=== PATIENT | male | born 1960 | race Caucasian/White ===

== ENCOUNTER 2025-06-25 18:19 | Inpatient (IN) | payer MEDICARE ==
[~2025-06-25] VITALS: Ht 167.6 cm; Wt 67.4 kg
[2025-06-25 18:52] LABS: VENOUS BASE EXCESS -4.3 (-2.0-2.0); VENOUS HCO3 21.9 MMOL/L (23.0-27.0); VENOUS O2 SATURATION 88.5 % (60.0-80.0); VENOUS PARTIAL PRESSURE CO2 44.6 mmHg (38.0-50.0); VENOUS PARTIAL PRESSURE O2 61.4 mmHg (30.0-50.0); VENOUS PH 7.309 UNITS (7.330-7.430); VENOUS STANDARD HCO3 20.8 MMOL/L; VENOUS TOTAL CO2 23.3 MMOL/L (24.0-28.0)
[2025-06-25 18:56] LABS: BASO # 0.1 10^3/uL (0.0-0.2); BASO % 1.0 % (0.0-1.0); EOS # 0.0 10^3/uL (0.0-0.5); EOS % 0.3 % (0.0-3.0); LYMPH # 1.2 10^3/uL (1.5-5.0); LYMPH % 9.2 % (24.0-44.0); MONO # 0.5 10^3/uL (0.0-0.8); MONO % 3.7 % (2.0-8.0); NEUTROPHILS # 10.9 10^3/uL (1.5-8.5); NEUTROPHILS % 85.3 % (36.0-66.0); PLATELET COUNT, AUTOMATED 282 10^3/uL (150-450)
[2025-06-25 19:06] LABS: KETONE, URINE AUTO RFX TRACE mg/dL (NEGATIVE); LEUKOCYTE ESTERASE UR AUTO RFX NEGATIVE (NEGATIVE); MUCUS, URINE RFX SMALL (NEGATIVE); NITRITE, URINE AUTO RFX NEGATIVE (NEGATIVE); RBC, URINE AUTO RFX 8 /HPF (0-3); SQUAM EPITHELIAL CELL UR AURFX 0 /HPF (0-6); WBC, URINE AUTO RFX 1 /HPF (0-3)
[2025-06-25 19:20] LABS: ETHYL ALCOHOL (ETHANOL) < 0.003 % (0.000-0.010)
[2025-06-25 19:21] LABS: ALT/SGPT 12 U/L (7.0-40); AST/SGOT 17 U/L (<34); SALICYLATE LEVEL < 3.0 MG/DL (<30)
[2025-06-25] MEDS ORDERED: MORPHINE 4 MG/ML 1 ML VIAL IV PRN (19:25)
[2025-06-25 19:30] LABS: AMPHETAMINES LEVEL URINE NEGATIVE (NEGATIVE); BARBITURATES URINE NEGATIVE (NEGATIVE); BENZODIAZEPINES URINE NEGATIVE (NEGATIVE); COCAINE METABOLITE URINE NEGATIVE (NEGATIVE); METHADONE URINE NEGATIVE (NEGATIVE); OPIATES URINE NEGATIVE (NEGATIVE); PHENCYCLIDINE URINE NEGATIVE (NEGATIVE)
[2025-06-25 19:33] LABS: CANNABINOIDS URINE POSITIVE (NEGATIVE)
[2025-06-25] MEDS: KETOROLAC 30 MG/ML 1 ML VIAL IV ONE (19:34)
[2025-06-25] MEDS: NS (Normal Saline) 0.9% 1,000 ML IV ONE (19:34)
[2025-06-25] MEDS: MORPHINE 4 MG/ML 1 ML VIAL IV PRN (19:59)
[2025-06-25 20:02] LABS: CALCIUM LEVEL 9.7 MG/DL (8.3-10.6); CARBON DIOXIDE LEVEL 21 MMOL/L (20-31); CHLORIDE LEVEL 103 MMOL/L (98-107); CREATININE FOR GFR 2.36 MG/DL (0.70-1.30); GLOMERULAR FILTRATION RATE 30.2 (>49); POTASSIUM SERUM 5.0 MMOL/L (3.5-5.1); SODIUM LEVEL 138 MMOL/L (136-145)
[2025-06-25] MEDS: HumuLIN R (REGULAR) INSULIN (NovoLIN R) **100 U/ML** PER UNIT IV ONE (20:59)
[2025-06-25] MEDS ORDERED: LEVE10003 PO (21:24)
[2025-06-25] MEDS ORDERED: ECOT81TA5 PO (21:24)
[2025-06-25] MEDS ORDERED: INSU100I40 SC (21:24)
[2025-06-25] MEDS: hydrALAZINE 20 MG/ML 1 ML VIAL IV STA (22:36)
[2025-06-25] MEDS ORDERED: GLUCOSE 4 GM CHEW PO PRN (23:00)
[2025-06-25] MEDS ORDERED: GLUCAGON INJ 1 MG VIAL SC PRN (23:00)
[2025-06-25] MEDS ORDERED: DEXTROSE 50% 50 ML SYRINGE IV PRN (23:00)
[2025-06-25] MEDS: LABETALOL 100 MG/20 ML VIAL IV STA (23:11)
[2025-06-25] MEDS ORDERED: PANT-23 PO (23:26)
[2025-06-25] MEDS ORDERED: DULO60CA35 PO (23:26)
[2025-06-25] MEDS ORDERED: METO1TAB87 PO (23:26)
[2025-06-25] MEDS ORDERED: HUMA100I5 SC (23:26)
[2025-06-25] MEDS ORDERED: MED REC COMMENT (23:27)
[2025-06-25] MEDS ORDERED: HOME MED LIST COMPLETE! XX SCH (23:30)
[2025-06-26] VITALS (7 sets, daily range): BP systolic 107–177; BP diastolic 59–83; TEMP 98.2–100.3; O2SAT 97–99
[2025-06-26] MEDS: NS (Normal Saline) 0.9% 1,000 ML IV SCH (00:53)
[2025-06-26] MEDS: INSULIN LISPRO (NovoLOG) PER UNIT SC ONE ×2 (01:40→06:23)
[2025-06-26 04:43] LABS: PLATELET COUNT, AUTOMATED 268 10^3/uL (150-450)
[2025-06-26 05:19] LABS: ALT/SGPT 12.0 U/L (7.0-40); AST/SGOT 18.0 U/L (<34); CALCIUM LEVEL 9.1 MG/DL (8.3-10.6); CARBON DIOXIDE LEVEL 20.0 MMOL/L (20-31); CHLORIDE LEVEL 104.0 MMOL/L (98-107); CHOLESTEROL LEVEL 205.0 MG/DL (<200); CHOLESTEROL RISK RATIO 3.76 (<5); CREATININE FOR GFR 2.63 MG/DL (0.70-1.30); GLOMERULAR FILTRATION RATE 26.5 (>49); LDL CHOLESTEROL 134.6 MG/DL (<100); MAGNESIUM LEVEL 1.7 MG/DL (1.8-2.4); NON-HDL-C 150.6 MG/DL; POTASSIUM SERUM 4.7 MMOL/L (3.5-5.1); SODIUM LEVEL 141.0 MMOL/L (136-145); TRIGLYCERIDES LEVEL 80.0 MG/DL (<150)
[2025-06-26 05:25] LABS: POTASSIUM RANDOM URINE 40.0 MMOL/L; SODIUM,RANDOM URINE 92.0 MMOL/L
[2025-06-26] MEDS ORDERED: LABETALOL 100 MG/20 ML VIAL IV PRN (06:30)
[2025-06-26] MEDS ORDERED: levETIRAcetam INJection 1,000 MG in IV 1 EA IV SCH (06:40)
[2025-06-26] MEDS: PANTOPRAZOLE 40MG VIAL IV SCH (08:02)
[2025-06-26] MEDS: HEPARIN SOD 5000 UNITS/ML 1 ML VIAL/SYRINGE SC SCH (08:03)
[2025-06-26] MEDS: INSULIN LISPRO (NovoLOG) PER UNIT SC SCH (08:03)
[2025-06-26] MEDS: LanTUS (INSULIN GLARGINE INJ) 1 UNITS/0.01 ML SC SCH (08:57)
[2025-06-26] MEDS: levETIRAcetam INJection 750 MG in D5W 100 ML IV SCH (08:57)
[2025-06-26] MEDS: METOPROLOL TART 25 MG TABLET PO SCH (08:58)
[2025-06-26] MEDS: ASPIRIN 81 MG ENTERIC TABLET PO SCH (08:58)
[2025-06-26] MEDS: amLODIPine 10 MG TAB PO SCH (09:32)
[2025-06-26 09:36] LABS: ESTIMATED AVERAGE GLUCOSE 286.0 MG/DL (60-110)
[2025-06-26 11:39] LABS: IRON (FE) 173.0 UG/DL (65-175); PERCENT SATURATION 51.3 % (19.7-50.0)
[2025-06-26] MEDS: PIPERACILLIN/TAZOBACTAM SOD 4.5 GM in DEXTROSE 5% (D5W) ADV/MINI-BAG 50 ML IV SCH (16:40)
[2025-06-27] VITALS (7 sets, daily range): BP systolic 141–191; BP diastolic 65–86; TEMP 97.7–99; O2SAT 96–99
[2025-06-27 05:03] LABS: PLATELET COUNT, AUTOMATED 267 10^3/uL (150-450)
[2025-06-27 05:25] LABS: CALCIUM LEVEL 9.0 MG/DL (8.3-10.6); CARBON DIOXIDE LEVEL 24.0 MMOL/L (20-31); CHLORIDE LEVEL 109.0 MMOL/L (98-107); CREATININE FOR GFR 3.25 MG/DL (0.70-1.30); GLOMERULAR FILTRATION RATE 20.6 (>49); POTASSIUM SERUM 4.5 MMOL/L (3.5-5.1); SODIUM LEVEL 143.0 MMOL/L (136-145)
[2025-06-27 08:21] LABS: C REACTIVE PROTEIN QUANTITATIV 0.54 MG/DL (<1.0)
[2025-06-27] MEDS: METOPROLOL TART 25 MG TABLET PO ONE (11:29)
[2025-06-27] MEDS: amLODIPine 5 MG TAB PO ONE (14:25)
[2025-06-27] MEDS: PIPERACILLIN/TAZOBACTAM SOD 4.5 GM in DEXTROSE 5% (D5W) ADV/MINI-BAG 50 ML IV SCH (19:55)
[2025-06-27] MEDS: METOPROLOL TART 25 MG TABLET PO SCH (20:05)
[2025-06-28] VITALS (8 sets, daily range): BP systolic 146–191; BP diastolic 71–98; TEMP 97.9–98.8; O2SAT 98–99
[2025-06-28 05:35] LABS: PLATELET COUNT, AUTOMATED 255 10^3/uL (150-450)
[2025-06-28 06:00] LABS: CALCIUM LEVEL 9.1 MG/DL (8.3-10.6); CARBON DIOXIDE LEVEL 23.0 MMOL/L (20-31); CHLORIDE LEVEL 109.0 MMOL/L (98-107); CREATININE FOR GFR 3.13 MG/DL (0.70-1.30); GLOMERULAR FILTRATION RATE 21.5 (>49); POTASSIUM SERUM 4.3 MMOL/L (3.5-5.1); SODIUM LEVEL 144.0 MMOL/L (136-145)
[2025-06-28 12:19] LABS: PSA SCREENING 0.75 NG/ML (< 4.00)
[2025-06-28] MEDS: amLODIPine 5 MG TAB PO SCH (15:01)
[2025-06-28] MEDS: TAMSULOSIN 0.4 MG CAP PO SCH (21:06)
[2025-06-29 03:34] VITALS: BP 167/80; TEMP 98.3; O2SAT 98
[2025-06-29 06:14] LABS: PLATELET COUNT, AUTOMATED 243 10^3/uL (150-450)
[2025-06-29 06:49] LABS: CALCIUM LEVEL 9.2 MG/DL (8.3-10.6); CARBON DIOXIDE LEVEL 26.0 MMOL/L (20-31); CHLORIDE LEVEL 108.0 MMOL/L (98-107); CREATININE FOR GFR 3.15 MG/DL (0.70-1.30); GLOMERULAR FILTRATION RATE 21.3 (>49); POTASSIUM SERUM 4.7 MMOL/L (3.5-5.1); SODIUM LEVEL 145.0 MMOL/L (136-145)
[2025-06-29] MEDS: PANTOPRAZOLE 40MG TAB PO SCH (08:20)
[2025-06-29 12:12] VITALS: BP 158/76; TEMP 97.7; O2SAT 100
[2025-06-29] MEDS: INSULIN LISPRO (NovoLOG) PER UNIT SC SCH (16:53)
[2025-06-29 19:50] VITALS: BP 148/88; TEMP 97; O2SAT 98
[2025-06-29] MEDS: CEFDINIR 300 MG CAP PO SCH (20:18)
[2025-06-29] MEDS ORDERED: CEFDINIR 300 MG CAP PO SCH (21:00)
[2025-06-30 03:36] VITALS: BP 168/70; TEMP 98.1; O2SAT 99
[2025-06-30 05:50] LABS: PLATELET COUNT, AUTOMATED 223 10^3/uL (150-450)
[2025-06-30 06:36] LABS: CALCIUM LEVEL 8.9 MG/DL (8.3-10.6); CARBON DIOXIDE LEVEL 25.0 MMOL/L (20-31); CHLORIDE LEVEL 109.0 MMOL/L (98-107); CREATININE FOR GFR 3.02 MG/DL (0.70-1.30); GLOMERULAR FILTRATION RATE 22.5 (>49); POTASSIUM SERUM 4.5 MMOL/L (3.5-5.1); SODIUM LEVEL 144.0 MMOL/L (136-145)
[2025-06-30 08:24] VITALS: BP 167/77
[2025-06-30 12:00] VITALS: BP 115/69; TEMP 97.4; O2SAT 100
[2025-06-30] MEDS ORDERED: TAMS-18 PO (15:35)
[2025-06-30] MEDS ORDERED: CEFD300CAP PO (15:35)
[2025-07-01] MEDS ORDERED: LanTUS (INSULIN GLARGINE INJ) 1 UNITS/0.01 ML SC SCH (09:00)
[2025-07-01] MEDS ORDERED: amLODIPine 10 MG TAB PO SCH (09:00)
[2025-07-01] MEDS ORDERED: DARBEPOETIN 100 MCG/0.5 ML *NON-DIALYSIS* SYRINGE SC SCH (09:00)
[2025-07-01 16:42] LABS: METANEPHRINE PLASMA 35 pg/mL (<=57); NORMETANEPHRINE PLASMA 264 pg/mL (<=148); TOTAL FREE 299 pg/mL (<=205)
== END 2025-06-30 17:05 | disposition home or self-care (01) | DRG 698 ==
LOC: M ED 18:19 → M ED INP 22:59 → M ICU 06-26 01:20 → M MS4PR 06-28 16:45
PROVIDERS: ADMIT Student in an Organized Health Care Education/Training Program; ATTEND Student in an Organized Health Care Education/Training Program
PROC: B246ZZZ Ultrasonography of Right and Left Heart (ICD-10-PCS; principal; 2025-06-26)
DX: E11.21 Type 2 diabetes mellitus with diabetic nephropathy (principal); G93.41 Metabolic encephalopathy; I12.9 Hypertensive chronic kidney disease with stage 1 through stage 4 chronic kidney disease, or unspecified chronic kidney disease; N17.9 Acute kidney failure, unspecified; N13.9 Obstructive and reflux uropathy, unspecified; G40.909 Epilepsy, unspecified, not intractable, without status epilepticus; E11.43 Type 2 diabetes mellitus with diabetic autonomic (poly)neuropathy; E11.22 Type 2 diabetes mellitus with diabetic chronic kidney disease; N18.4 Chronic kidney disease, stage 4 (severe); D72.829 Elevated white blood cell count, unspecified; K31.84 Gastroparesis; R10.9 Unspecified abdominal pain; R50.9 Fever, unspecified; N40.0 Benign prostatic hyperplasia without lower urinary tract symptoms; D64.9 Anemia, unspecified; Z87.891 Personal history of nicotine dependence; I16.0 Hypertensive urgency; Z79.82 Long term (current) use of aspirin; Z79.4 Long term (current) use of insulin; Z79.899 Other long term (current) drug therapy